=== PATIENT | male | born 1995 | race Caucasian/White ===

== ENCOUNTER 2016-06-15 23:34 | Emergency (ER) | payer MEDICAID ==
[~2016-06-15] VITALS: Wt 74.5 kg
[2016-06-16] MEDS ORDERED: KETOROLAC 30 MG INJ IM STA (01:01)
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
[2016-06-16] MEDS ORDERED: IBUP-1542 PO (01:13)
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
[2016-06-16 02:43] VITALS: BP 124/79; PULSE 68; RESP 20; TEMP 98
== END 2016-06-16 02:44 | disposition home or self-care (01) ==
LOC: FTE 23:34
DX: S20.219A Contusion of unspecified front wall of thorax, initial encounter (principal); R07.9 Chest pain, unspecified; V43.52XA Car driver injured in collision with other type car in traffic accident, initial encounter
CPT/HCPCS: 71020; 93005; 96372; J1885; Z7502